=== PATIENT | female | born 1980 | race Asian ===

== ENCOUNTER 2022-07-16 16:50 | Emergency (ER) | payer OTHER ==
[~2022-07-16] VITALS: Ht 154.9 cm; Wt 51.7 kg
[2022-07-16 17:03] VITALS: BP 136/70
[2022-07-16] MEDS ORDERED: IBUP-2213 PO (18:18)
[2022-07-16] MEDS ORDERED: LIDO15SO PO (18:18)
[2022-07-16] MEDS ORDERED: ALBU0.0912 INH (18:18)
[2022-07-16] MEDS ORDERED: PROM118S5 PO (18:18)
--- NOTE | 2022-07-16 19:30 | NUR ---
SEEN AND EXAMINED BY PA
[2022-07-16 20:05] VITALS: BP 121/79
--- NOTE | 2022-07-16 20:05 | NUR ---
Patient discharged with v/s stable. Written and verbal after care instructions given and explained. Patient alert, oriented and verbalized understanding of instructions. Ambulatory with steady gait. All questions addressed prior to discharge. ID band removed. Patient advised to follow up with PMD. Rx of ALBUTEROL, IBUPROFEN, PROMETHAZINE, LIDOCAINE VISCOUS given. Patient educated on indication of medication including possible reaction and side effects. Opportunity to ask questions provided and answered.
== END 2022-07-16 20:05 | disposition home or self-care (01) ==
LOC: MED 16:50
DX: J20.8 Acute bronchitis due to other specified organisms (principal)
CPT/HCPCS: 71045; 99283